=== PATIENT | female | born 1985 | race Caucasian/White ===

== ENCOUNTER → 2020-09-18 | Outpatient (CLI) | payer OTHER ==
--- NOTE | 2020-09-18 18:52 | ECHOF ---
Referral Reason:R06.00 Dyspnea MEASUREMENTS -------- HEIGHT: 172.7 cm WEIGHT: 106.6 kg BP: IVSd: 1.0 cm (0.6 - 1.1) LVIDd: 4.1 cm (3.9 - 5.3) LVPWd: 1.1 cm (0.6 - 1.1) EDV(Teich): 72 ml IVSs: 1.6 cm LVIDs: 2.4 cm LVPWs: 1.3 cm %IVS Thck: 56 % ESV(Teich): 19 ml EF(Teich): 73 % %FS: 42 % SV(Teich): 53 ml RVIDd: 2.4 cm (< 3.3) IVC: 15.28 mm LALs A4C: 4.6 cm LAAs A4C: 12.4 cm LAESV A-L A4C: 29 ml LAESV MOD A4C: 27 ml LALs A2C: 4.7 cm LAAs A2C: 15.3 cm LAESV A-L A2C: 42 ml LAESV MOD A2C: 40 ml LAESV(A-L): 36 ml Ao Diam: 3.0 cm (2.0 - 3.7) LA Diam: 2.7 cm (2.7 - 3.8) AV Cusp: 1.7 cm (1.5 - 2.6) EPSS: 0.5 cm MV E Justin: 0.62 m/s MV DecT: 195 ms MV Dec [place]: 3.2 m/s MV A Justin: 0.62 m/s MV E/A Ratio: 1.01 MV PHT: 56 ms MR Vmax: 5.04 m/s MR maxP.42 mmHg AV Vmax: 1.14 m/s AV maxP.23 mmHg TR Vmax: 1.42 m/s TR maxP.09 mmHg RAP: 5.00 mmHg RVSP: 13.09 mmHg MV EF SLOPE: 141.05 mm/s (70 - 150) MV EXCURSION: 13.54 mm (> 18.000) FINDINGS -------- This was a technically good study. The left ventricular size is normal. Left ventricular wall thickness is normal. Overall left vent ricular systolic function is normal with, an EF between 55 - 60 %. The diastolic filling pattern is normal for the age of the patient 7.11. The right ventricle is normal in size. The left atrial size is normal. Normal LA size by volume 22+/-6 ml/m2. The right atrial size is normal. Interatrial and interventricular septum intact. The aortic valve is trileaflet and appears structurally normal. The mitral valve is normal. There is trace mitral regurgitation. The tricuspid valve appears structurally normal. Trace tricuspid regurgitation present. Right rosana tricular systolic pressure is normal at < 35 mmHg. There is no pulmonic regurgitation present. The aortic root size is normal. Normal inferior vena cava with normal inspiratory collapse consistent with estimated right atrial pre ssure of 5 mmHg. There is no pericardial effusion. CONCLUSIONS -------- 1. The left ventricular size is normal. 2. Left ventricular wall thickness is normal. 3. Overall left ventricular systolic function is normal with, an EF between 55 - 60 %. 4. The diastolic filling pattern is normal for the age of the patient 7.11 5. There is trace mitral regurgitation. 6. Trace tricuspid regurgitation present. 7. There is no pericardial effusion. REDRYING MACHINE OPERATOR: Brigette Carbajal, MARY LOUCS
== END | disposition home or self-care (01) ==
LOC: RADECHMAIN 13:54
PROVIDERS: ATTEND Family Medicine
DX: I08.1 Rheumatic disorders of both mitral and tricuspid valves (principal)
CPT/HCPCS: 93306

== ENCOUNTER 2021-03-24 18:57 | Emergency (ER) | payer BC, OTHER ==
[2021-03-24 20:12] VITALS: BP 169/100
--- NOTE | 2021-03-24 20:40 | XR ---
EXAMINATION TYPE: XR chest 2V DATE OF EXAM: 03/24/2021 8:25 PM COMPARISON:None CLINICAL INDICATION:Female, 35 years old with history of cough;, TECHNIQUE: Frontal view of the chest. FINDINGS: Lungs/Pleura: There is no evidence of pleural effusion, focal consolidation, or pneumothorax. Pulmonary vascularity: Unremarkable. Heart/mediastinum: Cardiomediastinal silhouette is unremarkable. Musculoskeletal: No acute osseous pathology. IMPRESSION: No acute cardiopulmonary disease/process.
[2021-03-24] MEDS ORDERED: BENZONATATE 100 MG CAP PO STA (21:12)
--- NOTE | 2021-03-24 21:17 | ED ---
General Adult HPI - General Chief complaint: Upper Respiratory Infection Stated complaint: cough Time Seen by Provider: 03/24/21 20:32 Source: patient, RN notes reviewed Mode of arrival: ambulatory Limitations: no limitations - History of Present Illness Initial comments: 35-year-old female presents to the emergency Department with complaints of cough, congestion, and hoarse voice. Patient states her symptoms began last Friday have persisted. States she has had 2 Covid tests that have been negative. Complaining of mild sore throat. She has been taking DayQuil and NyQuil with minimal improvement. Denies fever, chills, headache, difficulty swallowing, chest pain, shortness of breath, abdominal pain, nausea, vomiting, diarrhea, or dysuria. - Related Data Allergies Allergy/AdvReac Type Severity Reaction Status Date / Time acetaminophen [From Vicodin] Allergy muscle Verified 03/24/21 20:12 spasms hydrocodone [From Vicodin] Allergy muscle Verified 03/24/21 20:12 spasms Review of Systems ROS Statement: Those systems with pertinent positive or pertinent negative responses have been documented in the HPI. ROS Other: All systems not noted in ROS Statement are negative. Past Medical History Past Medical History: No Reported History History of Any Multi-Drug Resistant Organisms: None Reported Additional Past Surgical History / Comment(s): lumpectomy Past Psychological History: Depression Smoking Status: Former smoker Past Alcohol Use History: None Reported Past Drug Use History: None Reported General Exam Limitations: no limitations (Well-developed, well-nourished female in no acute distress. Initial temperature 98.1, pulse 91, respirations 22, blood pressure 169/100, pulse ox 97% on room air.) General appearance: alert, in no apparent distress ENT exam: Present: normal exam, normal oropharynx, mucous membranes moist, TM's normal bilaterally Expanded Mouth exam: Present: normal external inspection Throat exam: normal inspection. negative: tonsillar erythema, tonsillomegaly, tonsillar exudate, R peritonsillar mass, L peritonsillar mass Neck exam: Present: normal inspection, full ROM. Absent: tenderness, meningismus, lymphadenopathy Respiratory exam: Present: normal lung sounds bilaterally, other (Dry, hoarse sounding cough). Absent: respiratory distress, wheezes, rales, rhonchi, stridor Cardiovascular Exam: Present: regular rate, normal rhythm, normal heart sounds. Absent: systolic murmur, diastolic murmur, rubs, gallop, clicks GI/Abdominal exam: Present: soft, normal bowel sounds. Absent: distended, tenderness, guarding, rebound, rigid Neurological exam: Present: alert, oriented X3, CN II-XII intact Psychiatric exam: Present: normal affect, normal mood Skin exam: Present: warm, dry, intact, normal color. Absent: rash Course Vital Signs 03/24/21 03/24/21 20:08 21:42 Temperature 98.1 F 98.0 F Pulse Rate 91 83 Respiratory 22 16 Rate Blood Pressure 169/100 O2 Sat by Pulse 97 99 Oximetry Medical Decision Making - Medical Decision Making This is a 35-year-old female who presents to the emergency department accompanied by her mother for evaluation of cough, congestion, and hoarse voice x5 days. Upon exam, patient is well-appearing and in no acute distress. Vital signs are stable. Her voice does have a hoarse quality and patient is noted to have a dry cough. Oropharynx is unremarkable. Lung sounds are clear to auscultation. Patient has no difficulty breathing or swallowing. Her Covid test is negative. She does not exhibit symptoms concerning for influenza. She will be prescribed Tessalon Perles for her cough and instructed to follow-up with her primary care provider for recheck. She was provided with a work note. Patient did decline repeat blood pressure measurement therefore was encouraged to follow-up with her PCP for elevated reading. Return parameters were discussed in detail. Patient verbalizes understanding and agrees with this plan. This patient's care was discussed with my attending Dr. Patel. - Lab Data Lab Results 03/24/21 Range/Units 20:15 Coronavirus (PCR) Not Detected (Not Detectd) Disposition Clinical Impression: Cough, Laryngitis, Acute upper respiratory infection Disposition: HOME SELF-CARE Condition: Stable Instructions (If sedation given, give patient instructions): Upper Respiratory Infection (ED) Additional Instructions: May take Tessalon Perles for cough up to 3 times per day as needed. Remember these must be swallowed whole, do not chew or dissolve. Alternate Tylenol and Motrin as needed for pain or fever. Work note provided for 2 days off. Rest and increase fluids. Follow-up with your PCP for a recheck on Friday. Return to the emergency department with any new, worsening, or concerning symptoms. Is patient prescribed a controlled substance at d/c from ED?: No Referrals: Chapin Juarez MD [Primary Care Provider] - 1-2 days Time of Disposition: 21:31
[2021-03-24 21:43] VITALS: PULSE 83; RESP 16; TEMP 98
== END 2021-03-24 21:59 | disposition home or self-care (01) ==
LOC: EC 18:57
DX: J04.0 Acute laryngitis (principal); J06.9 Acute upper respiratory infection, unspecified; Z20.822 Contact with and (suspected) exposure to COVID-19; Z87.891 Personal history of nicotine dependence; Z88.6 Allergy status to analgesic agent; Z88.5 Allergy status to narcotic agent
CPT/HCPCS: 71046; 87635; 99283

== ENCOUNTER → 2021-05-09 | Outpatient (CLI) | payer BC ==
--- NOTE | 2021-05-09 12:37 | CT ---
EXAMINATION TYPE: CT sinus wo con DATE OF EXAM: 05/09/2021 COMPARISON: None HISTORY: Chronic sinusitis CT DLP: 628.[address] of the paranasal sinuses was performed in the axial and coronal planes. Bone and soft tissue settings are submitted. The paranasal sinuses demonstrate normal aeration and development. The paranasal sinuses are free of mucosal thickening or air fluid level. The osteal meatal units are patent bilaterally. The nasal septum is midline. No bony destructive changes are seen within the field of view. IMPRESSION: Normal unenhanced CT of the paranasal sinuses.
== END | disposition home or self-care (01) ==
LOC: RADCTMAIN 11:18
PROVIDERS: ATTEND Family Medicine
DX: J32.9 Chronic sinusitis, unspecified (principal)
CPT/HCPCS: 70486

== ENCOUNTER → 2021-08-17 | Outpatient (CLI) | payer BC ==
--- NOTE | 2021-08-20 18:59 | MM ---
Reason for Exam: Screening (asymptomatic). Patient History: Menarche at age 11. Risk Values: Malini 5 year model risk: 0.2%. NCI Lifetime model risk: 7.5%. Tissue Density: There are scattered fibroglandular densities. Findings: Analyzed By CAD. No significant mass, suspicious microcalcification, or other discrete abnormality is seen. Overall Assessment: Negative, BI-RAD 1 Management: Screening Mammogram of both breasts at age 39. 1. A clinical breast exam by your physician is recommended on an annual basis and results should be correlated with mammographic findings. 2. The patient should continue monthly self breast exams. 3. This exam should not preclude additional follow-up of suspicious palpable abnormalities. Electronically signed and approved by: Nadine Watts M.D. Radiologist
== END | disposition home or self-care (01) ==
LOC: RADMAMWWP 10:53
PROVIDERS: ATTEND Family Medicine
DX: Z12.31 Encounter for screening mammogram for malignant neoplasm of breast (principal)
CPT/HCPCS: 77063; 77067